=== PATIENT | male | born 1925 | race Caucasian/White ===

== ENCOUNTER 2016-05-03 20:54 | Observation (INO) | payer MEDICARE ==
--- NOTE | 2016-05-03 22:34 | ERNOTE ---
Medical Problem HPI - General Chief Complaint: General Assessment Time Seen by Provider: 05/03/16 22:23 Source: family Exam Limitations: dementia - Immun/Allergies/Home Medications Immunizations: IMMUNIZATION HX Immunizations Up to Date Yes History of Influenza Vaccine More Information Required Hx Pneumococcal Vaccination More Information Required Allergies/Adverse Reactions: Allergies No Known Allergies Allergy (Verified 05/03/16 22:17) Home Medications: HOME MEDICATIONS Pravastatin Sodium [Pravachol] 40 mg PO HS 05/31/12 [Last Taken Unknown] Terazosin HCl 10 mg PO BID 05/31/12 [Last Taken Unknown] Finasteride 05/03/16 [Last Taken Unknown] Furosemide [Lasix] 40 mg PO BID 05/03/16 [Last Taken Unknown] Lisinopril [Zestril] 40 mg PO DAILY 05/03/16 [Last Taken Unknown] QUEtiapine FUMARATE [Seroquel] 25 mg PO HS 05/03/16 [Last Taken Unknown] Verapamil HCl [Verelan] 240 mg PO DAILY 05/03/16 [Last Taken Unknown] amLODIPine BESYLATE 05/03/16 [Last Taken Unknown] - History of Present History Narrative: thinks he has "fluid around his heart" again Timing: getting worse Severity: moderate Review of Systems - Review of Systems Constitutional: Present: fatigue EYE: Present: no symptoms reported ENT: Present: no symptoms reported Respiratory: Present: shortness of breath Cardiology: Present: palpitations Gastrointestinal/Abdominal: Present: no symptoms reported Genitourinary: Present: no symptoms reported Musculoskeletal: Present: no symptoms reported Skin: Absent: rash Neurological: Present: anxiety, other - dementia, states he has been harder to handle lately Endocrine: Present: no symptoms reported Hematologic/Lymphatic: Present: no symptoms reported Psych: Present: no symptoms reported - Patient's Past Medical History Patient History - Medical: Diabetes Type 2, Dementia Patient History - Cancer: Skin Patient History - Surgical Procedures: No surgical history - Social History Living Situations: home Smoking Status: Never smoker Alcohol Use: none Drug Use: none Physical Exam - Physical Exam General Appearance: Present: wd/wn, alert, no apparent distress Ears, Nose, Throat: Present: normal ENT inspection, hearing decreased, normal pharynx Neck: Present: normal inspection, nontender Respiratory: Present: no respiratory distress, no accessory muscle use, crackles - right lower Cardiovascular/Chest: Present: bradycardia, irregularly irregular Gastrointestinal/Abdominal: Present: normal bowel sounds, nontender Back Exam: Present: normal inspection, normal range of motion, no CVA tenderness , no vertebral tenderness Extremity Exam: Present: normal inspection, non-tender, no edema, normal range of motion Neurological Exam: Present: alert, oriented - to self and situation Skin Exam: Present: normal color, warm/dry Lymphatic Exam: Present: no adenopathy ED Progress - Results and Orders Patient's Lab Results:: I have reviewed the patient's lab results. Results and Orders: Laboratory Tests 05/03/16 05/03/16 05/03/16 22:40 22:40 22:40 WBC 5.5 Hgb 10.6 L Hct 32.4 L Plt Count 91 L PT 12.3 H INR (Anticoag Therapy) 1.18 H PTT ([place]) 26.9 Sodium 141 Potassium 5.1 H Chloride 105 Carbon Dioxide 26.9 Anion Gap 14.2 H BUN 40 H Creatinine 1.57 H Est GFR (Non-Af Amer) 44 L BUN/Creatinine Ratio 25.5 H Random Glucose 155 H Calcium 8.6 Total Bilirubin 0.3 AST 15 ALT 18 L Alkaline Phosphatase 82 Troponin I 0.017 Total Protein 7.3 Albumin 3.6 - Vital Signs Patient's Vital Signs:: I have reviewed the patient's vital signs. Vital Signs: Vital Signs 05/03/16 05/03/16 22:10 22:17 Temperature 36.3 C L Pulse Rate 55 L 55 L Respiratory 18 14 Rate Blood Pressure 161/70 O2 Sat by Pulse 96 95 Oximetry - EKG EKG: atrial fibrillation EKG read: Interp. by me EKG Comments: slow ventricular response. no ST-T wave changes - X-Ray X-Ray #1 X-Ray: chest Interpretation: Interp. by me X-ray Comments: Possibly widened mediastinum. Scarring and possibly pleural effusion on the right - Progress/Reassessment Chief Complaint: General Assessment Progress:: Unchanged Progress Note-Subjective: 05/04/16 02:40 Called [facility] for possible transfer. [employer] states they are full and give permission to admit him here. 05/04/16 02:[address] Zuiñga, he agrees to admit patient here Departure - Departure Clinical Impression: Pleural effusion Atrial fibrillation Qualifiers: Atrial fibrillation type: unspecified Qualified Code(s): I48.91 - Unspecified atrial fibrillation Dementia Qualifiers: Dementia type: unspecified type Dementia behavioral disturbance: with behavioral disturbance Qualified Code(s): F03.91 - Unspecified dementia with behavioral disturbance Disposition: [facility] Condition: Fair
[2016-05-03 22:47] LABS: Hematocrit 32.4 % (42.0-52.0); Hemoglobin 10.6 gm/dL (13.5-18.0); Mean Corpuscular Hemoglobin 30.4 pg (27-31); Mean Corpuscular Hgb Conc 32.7 g/dl (32-36); Mean Platelet Volume 13.2 fl (6.0-9.5); Neutrophil # 3.8 K/mm3 (1.3-6.0); Red Blood Count 3.49 M/mm3 (4.7-6.0); White Blood Count 5.5 K/mm3 (4.0-10.5)
[2016-05-03 22:56] LABS: Prothrombin Time (Patient) 12.3 Seconds (9.4-11.4)
[2016-05-03 22:58] LABS: INR 1.18 INR (0.90-1.10); Partial Thrombolplastin Time 26.9 Seconds (24-32)
[2016-05-03 23:02] LABS: Platelet Count 91 K/mm3 (150-450)
[2016-05-03 23:03] LABS: Mean Cell Volume 92.8 fl (78-100)
[2016-05-03 23:04] LABS: Albumin * 3.6 gm/dl (3.4-5.0); Anion Gap 14.2 mmol/L (6.8-13.8); BUN/Creatinine Ratio 25.5 (9.0-21.6); Bilirubin, Total 0.3 mg/dL (0.0-1.1); Ca. Corrected For Albumin 8.6 mg/dL (8.4-10.2); Calcium * 8.6 mg/dL (7.9-10.9); Carbon Dioxide 26.9 mmol/L (24-32.6); Potassium 5.1 mmol/L (3.4-4.6); Total Protein 7.3 gm/dL (6.2-8.2); Troponin I 0.017 ng/ml (0.00-0.10)
[2016-05-04] MEDS: SODIUM CHLORIDE 45 SPRAY BTL NS PRN ×2 (11:42→21:36)
[2016-05-04] MEDS: SPIRONOLACTONE 25 MG TABLET PO SCH (17:13)
[2016-05-04] MEDS: ASPIRIN 325 MG TABLET.DR PO SCH (17:13)
[2016-05-04] MEDS: DOCUSATE SODIUM 100 MG CAPSULE PO SCH (17:13)
[2016-05-04] MEDS: FINASTERIDE 5 MG TABLET PO SCH (17:14)
[2016-05-04] MEDS: amLODIPine BESYLATE 5 MG TABLET PO SCH (17:14)
[2016-05-04] MEDS: LISINOPRIL 40 MG TABLET PO SCH (17:15)
--- NOTE | 2016-05-04 21:19 | HP ---
Addendum entered and electronically signed by Isaiah Zuñiga DO 06/08/16 07:40: Family History: Not contributory Original Note: Chief Complaint - Chief Complaint Date of Service: 05/04/16 Time of Service: 12:15 Chief Complaint: Short of breath, confusion, weakness History of Present Illness: Kumar is an 89 yo male with confusion. He reports that his has locked him here for 6 days and he is going to divorce her. He has no complaints. He does not answer questions appropriately. Report from the ER physician is that he was brought to the ER with weakness and shortness of breath. His brought him to the ER but left when he was admitted stating that she was not taking him home. ECG showed atrial fibrillation with rate controlled. was unaware of any prior history of atrial fibrillation. Chest xray showed right sided pleural effusion. No hypoxia on exam. History from patient and review of systoms is otherwise unabtainable. - Narrative Narrative: Past medical history is per ER, patient is unable to provide further and there is no family present. - Patient's Past Medical History Patient History - Medical: Diabetes Type 2, Dementia Patient History - Cardiac/Respiratory: History Unknown Patient History - Cancer: Skin Patient History - Surgical Procedures: No surgical history - Social History Living Situations: home Smoking Status: Never smoker Have you smoked in the past 12 months: No Alcohol Use: none Drug Use: none Review Of Systems (GEN) - Review of Systems Additional Comments: Unable to perform. Allergies/Adverse Reactions: Allergies Allergy/AdvReac Type Severity Reaction Status Date / Time No Known Allergies Allergy Verified 05/03/16 22:17 Home Medications: HOME MEDICATIONS Furosemide [Lasix] 80 mg PO BID 05/03/16 [Last Taken Unknown] Lisinopril [Zestril] 40 mg PO DAILY 05/03/16 [Last Taken Unknown] QUEtiapine FUMARATE [Seroquel] 25 mg PO HS 05/03/16 [Last Taken Unknown] Aspirin [Aspirin Enteric Coated] 325 mg PO DAILY 05/04/16 [Last Taken Unknown] Atorvastatin Calcium 20 mg PO HS 05/04/16 [Last Taken Unknown] Docusate Sodium [Colace] 200 mg PO DAILY 05/04/16 [Last Taken Unknown] Finasteride [Proscar] 5 mg PO DAILY 05/04/16 [Last Taken Unknown] Ibuprofen [Motrin] 200 mg PO Q6H PRN 05/04/16 [Last Taken Unknown] Spironolactone [Aldactone] 25 mg PO DAILY 05/04/16 [Last Taken Unknown] Terazosin HCl 10 mg PO BID 05/04/16 [Last Taken Unknown] amLODIPine BESYLATE [Norvasc] 5 mg PO DAILY 05/04/16 [Last Taken Unknown] guaiFENesin [Cough Control] 100 mg PO PRN PRN 05/04/16 [Last Taken Unknown] Exam - Exam Vital Signs: Vital Signs - Last Taken Temp 36.8 C 05/04/16 19:50 Pulse 84 05/04/16 19:50 Resp 20 05/04/16 19:50 BP 168/54 05/04/16 19:50 Pulse Ox 92 05/04/16 19:50 Constitutional: Present: Alert, No distress, Elderly ENT Exam: Present: hard of hearing Eye Exam: bilateral eye: normal inspection Respiratory: Present: decreased breath sounds - right lower lobe Cardiovascular/Chest: Present: no murmur, irregularly irregular Abdomen: Present: Normal bowel sounds, soft, nontender, nondistended, no rebound tenderness Extremity: Present: normal inspection Skin Exam: Present: normal color, warm/dry, no cyanosis Neurologic: Present: other - moves all extremities equally Thoughts: Present: delusions Diagnostic Studies: Laboratory Results WBC 5.5 K/mm3 (4.0-10.5) 05/03/16 22:40 RBC 3.49 M/mm3 (4.7-6.0) L 05/03/16 22:40 Hgb 10.6 gm/dL (13.5-18.0) L 05/03/16 22:40 Hct 32.4 % (42.0-52.0) L 05/03/16 22:40 MCV 92.8 fl (78-100) 05/03/16 22:40 MCH 30.4 pg (27-31) 05/03/16 22:40 MCHC 32.7 g/dl (32-36) 05/03/16 22:40 RDW 14.0 % (11.5-14.0) 05/03/16 22:40 Plt Count 91 K/mm3 (150-450) L 05/03/16 22:40 MPV 13.2 fl (6.0-9.5) H 05/03/16 22:40 Immature Gran % (Auto) 0.20 % (0.001-0.429) 05/03/16 22:40 Immature Gran # (Auto) 0.01 K/mm3 (0.000-0.0310) 05/03/16 22:40 Neutrophils % 69.0 % (42-75.0) 05/03/16 22:40 Lymphocytes % 18.6 % (20-51) L 05/03/16 22:40 Monocytes % 9.0 % (0.0-9) 05/03/16 22:40 Eosinophils % 2.7 % (0.0-3.0) 05/03/16 22:40 Basophils % 0.5 % (0.0-1.0) 05/03/16 22:40 Nucleated RBC % 0.0 k/mm3 (0-1) 05/03/16 22:40 Neutrophils # 3.8 K/mm3 (1.3-6.0) 05/03/16 22:40 Lymphocytes # 1.0 k/mm3 (1.5-3.5) L 05/03/16 22:40 Monocytes # 0.5 k/mm3 (0.0-1.0) 05/03/16 22:40 Eosinophils # 0.2 k/mm3 (0.0-0.7) 05/03/16 22:40 Absolute Basophils 0.0 k/mm3 (0.0-0.1) 05/03/16 22:40 PT 12.3 Seconds (9.4-11.4) H 05/03/16 22:40 INR (Anticoag Therapy) 1.18 INR (0.90-1.10) H 05/03/16 22:40 PTT ([place]) 26.9 Seconds (24-32) 05/03/16 22:40 Sodium 141 mmol/L (132-142) 05/03/16 22:40 Plasma Sodium 142 mmol/L (130-142) 05/03/16 22:40 Potassium 5.1 mmol/L (3.4-4.6) H 05/03/16 22:40 Chloride 105 mmol/L (97-106) 05/03/16 22:40 Carbon Dioxide 26.9 mmol/L (24-32.6) 05/03/16 22:40 Anion Gap 14.2 mmol/L (6.8-13.8) H 05/03/16 22:40 BUN 40 mg/dL (6-23) H 05/03/16 22:40 Creatinine 1.57 mg/dL (0.4-1.4) H 05/03/16 22:40 Est GFR (Non-Af Amer) 44 mL/min (60-130) L 05/03/16 22:40 BUN/Creatinine Ratio 25.5 (9.0-21.6) H 05/03/16 22:40 Random Glucose 155 mg/dL (70-110) H 05/03/16 22:40 Calcium 8.6 mg/dL (7.9-10.9) 05/03/16 22:40 Calcium Adj for Albumin 8.6 mg/dL (8.4-10.2) 05/03/16 22:40 Total Bilirubin 0.3 mg/dL (0.0-1.1) 05/03/16 22:40 AST 15 U/L (0-48) 05/03/16 22:40 ALT 18 U/L (19-67) L 05/03/16 22:40 Alkaline Phosphatase 82 U/L (50-170) 05/03/16 22:40 Troponin I 0.017 ng/ml (0.00-0.10) 05/03/16 22:40 Total Protein 7.3 gm/dL (6.2-8.2) 05/03/16 22:40 Albumin 3.6 gm/dl (3.4-5.0) 05/03/16 22:40 Assessment/Plan - Narrative Narrative: Kumar is an 89 yo male with new onset atrial fibrillation with controlled rate. His history is mostly unknown and family is not present. On exam he seems to be confused and oriented x 0. He is not in any acute distress and other than confusion is medically stable. Unclear etiology to atrial fibrillation and unsure of onset. Due to suspected chronic dementia patient is not likely a candidate for anticoagulation due to fall and bleeding risk. Aspirin will be sufficient for anticoagulation. Rate does not need further controlled as it is already stable. Patient does not meet criteria for inpatient status. Vitals are stable, no hypoxia. Patient does have pleural effusion but no apparent dyspnea or hypoxia. Patient is already on lasix. Could consider symptomatic thoracentesis but patient has no concerns about shortness of breath. Unsure on dementia if this is his baseline. Will discuss further with family. Expect 1 midnight stay for monitoring and observation and then will discharge to home unless family wishes to placement into nursing facility. - Assessment/Plan (1) Atrial fibrillation Problem: Acute Qualifiers: Atrial fibrillation type: unspecified Qualified Code(s): I48.91 - Unspecified atrial fibrillation (2) Dementia Problem: Chronic Qualifiers: Dementia type: unspecified type Dementia behavioral disturbance: without behavioral disturbance Qualified Code(s): F03.90 - Unspecified dementia without behavioral disturbance (3) Pleural effusion Problem: Acute
[2016-05-04] MEDS: FUROSEMIDE 80 MG TABLET PO SCH (21:29)
[2016-05-04] MEDS: ROSUVASTATIN CALCIUM 10 MG TABLET PO SCH (21:29)
[2016-05-04] MEDS: TERAZOSIN HCL 5 MG CAPSULE PO SCH (21:30)
[2016-05-04] MEDS: QUEtiapine FUMARATE 25 MG TABLET PO SCH (21:31)
[2016-05-04 23:09] LABS: Phosphorus 3.3 mg/dL (2.2-4.2); Potassium 4.9 mmol/L (3.4-4.6)
[2016-05-05] MEDS: SPIRONOLACTONE 25 MG TABLET PO SCH (08:28)
[2016-05-05] MEDS: ASPIRIN 325 MG TABLET.DR PO SCH (08:28)
[2016-05-05] MEDS: FUROSEMIDE 80 MG TABLET PO SCH ×2 (08:29→21:04)
[2016-05-05] MEDS: amLODIPine BESYLATE 5 MG TABLET PO SCH (08:29)
[2016-05-05] MEDS: FINASTERIDE 5 MG TABLET PO SCH (08:29)
[2016-05-05] MEDS: DOCUSATE SODIUM 100 MG CAPSULE PO SCH (08:29)
[2016-05-05] MEDS: TERAZOSIN HCL 5 MG CAPSULE PO SCH ×2 (08:29→21:04)
[2016-05-05] MEDS: LISINOPRIL 40 MG TABLET PO SCH (08:30)
[2016-05-05 09:40] LABS: Hemoglobin 11.2 gm/dL (13.5-18.0); Mean Cell Volume 91.4 fl (78-100); Mean Corpuscular Hemoglobin 30.1 pg (27-31); Mean Corpuscular Hgb Conc 32.9 g/dl (32-36); Mean Platelet Volume 11.8 fl (6.0-9.5); Neutrophil # 4.3 K/mm3 (1.3-6.0); Neutrophil % 76.7 % (42-75.0); Platelet Count 95 K/mm3 (150-450); Red Blood Count 3.72 M/mm3 (4.7-6.0); Red Cell Distribution Width 13.6 % (11.5-14.0); White Blood Count 5.5 K/mm3 (4.0-10.5)
[2016-05-05 09:58] LABS: Albumin * 3.5 gm/dl (3.4-5.0); Anion Gap 11.3 mmol/L (6.8-13.8); BUN/Creatinine Ratio 19.4 (9.0-21.6); Bilirubin, Total 0.8 mg/dL (0.0-1.1); Ca. Corrected For Albumin 9.4 mg/dL (8.4-10.2); Calcium * 9.3 mg/dL (7.9-10.9); Carbon Dioxide 30.1 mmol/L (24-32.6); Potassium 4.4 mmol/L (3.4-4.6); TSH * 1.315 uIU/mL (0.358-3.74); Total Protein 7.4 gm/dL (6.2-8.2)
--- NOTE | 2016-05-05 14:06 | PN ---
Subjective - Date and Time Seen Date: 05/05/16 Time: 09:40 Subjective Narrative: patient seen today in bed alert to self. pt stated his ran off and left him. he denies chest pain, palpitation, shortness of breath or lightheadedness. Objective - Review of Systems Generalized/Overall Review: Reports: No Symptoms Reported - unable to provide info due to mental status EENTM: Reports: No Symptoms Reported Respiratory: Reports: No Symptoms Reported Abdominal: Reports: No Symptoms Reported Genitourinary Symptoms: Reports: No Symptoms Reported Musculoskeletal Complaints: Reports: No Symptoms Reported Neurological: Reports: No Symptoms Reported Skin: Reports: No Symptoms Reported Endocrine: Reports: No Symptoms Reported - Vitals Vitals: Last Vital Signs Temp 37.1 C 05/05/16 09:39 Pulse 67 05/05/16 09:39 Resp 20 05/05/16 09:39 BP 130/53 05/05/16 09:39 Pulse Ox 93 05/05/16 09:39 - Abnormal Lab Findings Abnormal Lab Findings: Abnormal Lab Results 05/04/16 05/05/16 05/05/16 Range/Units 22:53 09:28 09:28 RBC 3.72 L (4.7-6.0) M/mm3 Hgb 11.2 L (13.5-18.0) gm/dL Hct 34.0 L (42.0-52.0) % Plt Count 95 L (150-450) K/mm3 MPV 11.8 H (6.0-9.5) fl Neutrophils % 76.7 H (42-75.0) % Lymphocytes % 11.9 L (20-51) % Lymphocytes # 0.7 L (1.5-3.5) k/mm3 Potassium 4.9 H (3.4-4.6) mmol/L BUN 28 H (6-23) mg/dL Creatinine 1.44 H (0.4-1.4) mg/dL Est GFR (Non-Af Amer) 49 L (60-130) mL/min Random Glucose 184 H (70-110) mg/dL ALT 16 L (19-67) U/L - Exam Constitutional: Present: No distress, Elderly ENT Exam: Present: moist mucous membranes Neck: Present: full range of motion Breasts: Present: Exam deferred Respiratory: Present: chest non-tender, lungs clear, normal breath sounds, no respiratory distress Cardiovascular/Chest: Present: normal peripheral pulses, no chest tenderness, no edema Abdomen: Present: Normal bowel sounds, soft, nontender, nondistended, no rebound tenderness /Rectal: Present: Exam deferred Extremity: Present: normal range of motion, normal inspection, no pedal edema, no calf tenderness Skin Exam: Present: normal color, warm/dry, no cyanosis Neurologic: Present: disoriented x 3 Appearance: Present: impaired recent memory Eye contact: Present: good eye contact Thoughts: Present: no apparent hallucination Assessment/Plan Plan Narrative: Atrial fibrillation 2D-echo pending TSH pending on adm Troponin 0.017 on adm EKG--A-fib On adm no distress new onset a-fib rate control on Metoprolol chronic dementia not a candidate for anticoag due to risk of fall/ bleeding---- > will continue with aspirin Dementia Chronic not at the bedside to confirm pt baseline Per previous notes left pt, with the attempt to get group home placement. she is unable to care for him at home. social service aware and making arrangements. Pleural effusion CXR: right side pleural effusion with associated compressive atelectasis, the right lower lobe. Home dose Lasix 80mg BID ? Thoracentesis if symptomatic VTE ppx: SCD/ ambulate Code status; Full - Problems/Diagnosis (1) Atrial fibrillation Problem: Acute Qualifiers: Atrial fibrillation type: unspecified Qualified Code(s): I48.91 - Unspecified atrial fibrillation (2) Pleural effusion Problem: Acute (3) Dementia Problem: Chronic Qualifiers: Dementia type: unspecified type Dementia behavioral disturbance: without behavioral disturbance Qualified Code(s): F03.90 - Unspecified dementia without behavioral disturbance
[2016-05-05] MEDS: HALOPERIDOL 1 MG TABLET PO PRN (16:51)
[2016-05-05] MEDS: HALOPERIDOL 5 MG TABLET PO PRN (19:13)
[2016-05-05] MEDS: SODIUM CHLORIDE 45 SPRAY BTL NS PRN (21:02)
[2016-05-05] MEDS: ROSUVASTATIN CALCIUM 10 MG TABLET PO SCH (21:03)
[2016-05-05] MEDS: QUEtiapine FUMARATE 25 MG TABLET PO SCH (21:04)
[2016-05-06] MEDS: HALOPERIDOL 1 MG TABLET PO PRN (01:23)
--- NOTE | 2016-05-06 08:45 | PN ---
Subjective - Date and Time Seen Date: 05/06/16 Time: 08:40 Subjective Narrative: Patient seen today at the nurses station alert to self and agitated while left alone. He denies discomfort and stated " I want my to come get him from this place". Objective - Review of Systems Generalized/Overall Review: Reports: No Symptoms Reported Respiratory: Reports: No Symptoms Reported Cardiac: Reports: No Symptoms Reported Abdominal: Reports: No Symptoms Reported Genitourinary Symptoms: Reports: No Symptoms Reported Musculoskeletal Complaints: Reports: No Symptoms Reported Neurological: Reports: No Symptoms Reported Skin: Reports: No Symptoms Reported - Vitals Vitals: Last Vital Signs Temp 36.6 C 05/06/16 06:17 Pulse 52 L 05/06/16 06:17 Resp 16 05/06/16 06:17 BP 145/56 05/06/16 06:17 Pulse Ox 96 05/06/16 06:17 - Abnormal Lab Findings Abnormal Lab Findings: Abnormal Lab Results 05/05/16 05/05/16 Range/Units 09:28 09:28 RBC 3.72 L (4.7-6.0) M/mm3 Hgb 11.2 L (13.5-18.0) gm/dL Hct 34.0 L (42.0-52.0) % Plt Count 95 L (150-450) K/mm3 MPV 11.8 H (6.0-9.5) fl Neutrophils % 76.7 H (42-75.0) % Lymphocytes % 11.9 L (20-51) % Lymphocytes # 0.7 L (1.5-3.5) k/mm3 BUN 28 H (6-23) mg/dL Creatinine 1.44 H (0.4-1.4) mg/dL Est GFR (Non-Af Amer) 49 L (60-130) mL/min Random Glucose 184 H (70-110) mg/dL ALT 16 L (19-67) U/L - EKG/Xray Findings EKG: atrial fibrillation - Exam Constitutional: Present: Elderly ENT Exam: Present: hard of hearing, moist mucous membranes Neck: Present: full range of motion Breasts: Present: Exam deferred Respiratory: Present: chest non-tender, no respiratory distress, no accessory muscle use Cardiovascular/Chest: Present: normal peripheral pulses, no chest tenderness, irregularly irregular Abdomen: Present: Normal bowel sounds, soft, nontender, nondistended, no rebound tenderness /Rectal: Present: Exam deferred Extremity: Present: normal range of motion, non-tender, normal inspection, no pedal edema, no calf tenderness Skin Exam: Present: normal color, cool/dry Neurologic: Present: disoriented x 3 Appearance: Present: impaired insight Assessment/Plan Plan Narrative: Atrial fibrillation 2D-echo still pending TSH Noted On adm Troponin 0.017 on adm EKG--A-fib, tele pt remain in A-fib On adm no distress new onset a-fib rate control on Metoprolol chronic dementia not a candidate for anticoag due to risk of fall/ bleeding---- > will continue with aspirin Pleural effusion CXR: right side pleural effusion with associated compressive atelectasis, the right lower lobe. Asymptomatic Dementia Chronic not at the bedside to confirm pt baseline Per previous notes left pt, with the attempt to get [facility] placement on dementia unit. she is unable to care for him at home. social service aware and attempting to secure placement[facility] , he will need [facility] on a [facility] unit. [facility] have waiting list for there unit. MARQUIS On adm Bun/cre 40/1.57--->28/1.44 gradually trending down GFR 49 Monitor BMP in am VTE ppx: SCD/ ambulate Code status; Full - Problems/Diagnosis (1) Atrial fibrillation Problem: Acute Qualifiers: Atrial fibrillation type: unspecified Qualified Code(s): I48.91 - Unspecified atrial fibrillation (2) Pleural effusion Problem: Acute (3) Dementia Problem: Chronic Qualifiers: Dementia type: unspecified type Dementia behavioral disturbance: without behavioral disturbance Qualified Code(s): F03.90 - Unspecified dementia without behavioral disturbance
[2016-05-06] MEDS: SPIRONOLACTONE 25 MG TABLET PO SCH (09:42)
[2016-05-06] MEDS: FUROSEMIDE 80 MG TABLET PO SCH ×2 (09:42→20:50)
[2016-05-06] MEDS: LISINOPRIL 40 MG TABLET PO SCH (09:42)
[2016-05-06] MEDS: DOCUSATE SODIUM 100 MG CAPSULE PO SCH (09:42)
[2016-05-06] MEDS: amLODIPine BESYLATE 5 MG TABLET PO SCH (09:43)
[2016-05-06] MEDS: TERAZOSIN HCL 5 MG CAPSULE PO SCH ×2 (09:43→20:50)
[2016-05-06] MEDS: FINASTERIDE 5 MG TABLET PO SCH (09:43)
[2016-05-06] MEDS: ASPIRIN 325 MG TABLET.DR PO SCH (09:43)
[2016-05-06 10:26] LABS: BUN/Creatinine Ratio 20.9 (9.0-21.6); Calcium * 9.5 mg/dL (7.9-10.9); Carbon Dioxide 30.1 mmol/L (24-32.6); Potassium 4.1 mmol/L (3.4-4.6)
[2016-05-06 13:51] LABS: Urine Bilirubin Negative (NEGATIVE); Urine Blood 25 /ul (NEGATIVE); Urine Ketone Negative (NEGATIVE); Urine Nitrite Negative (NEGATIVE); Urine Protein Negative (NEGATIVE); Urine Specific Gravity 1.015 SP.GR. (1.005-1.030); Urine Urobilinogen Normal (NORMAL); Urine pH 5.5 pH (5.0-7.0)
[2016-05-06 14:04] LABS: Urine Appearance Clear; Urine Color Yellow
[2016-05-06 14:05] LABS: Urine Bacteria TRACE; Urine RBC 0-5 /hpf (0-5)
[2016-05-06] MEDS: HALOPERIDOL 5 MG TABLET PO PRN (20:50)
[2016-05-06] MEDS: QUEtiapine FUMARATE 25 MG TABLET PO SCH (20:51)
[2016-05-06] MEDS: ROSUVASTATIN CALCIUM 10 MG TABLET PO SCH (20:51)
[2016-05-06] MEDS: SODIUM CHLORIDE 45 SPRAY BTL NS PRN (20:51)
[2016-05-07] MEDS: SODIUM CHLORIDE 45 SPRAY BTL NS PRN ×3 (07:34→20:35)
[2016-05-07] MEDS: ASPIRIN 325 MG TABLET.DR PO SCH (08:46)
[2016-05-07] MEDS: amLODIPine BESYLATE 5 MG TABLET PO SCH (08:47)
[2016-05-07] MEDS: LISINOPRIL 40 MG TABLET PO SCH (08:47)
[2016-05-07] MEDS: TERAZOSIN HCL 5 MG CAPSULE PO SCH ×2 (08:47→20:35)
[2016-05-07] MEDS: SPIRONOLACTONE 25 MG TABLET PO SCH (08:48)
[2016-05-07] MEDS: FINASTERIDE 5 MG TABLET PO SCH (08:48)
[2016-05-07] MEDS: FUROSEMIDE 80 MG TABLET PO SCH (08:48)
[2016-05-07] MEDS: DOCUSATE SODIUM 100 MG CAPSULE PO SCH (08:48)
[2016-05-07] MEDS ORDERED: FUROSEMIDE 80 MG TABLET PO SCH (19:00)
[2016-05-07] MEDS: ROSUVASTATIN CALCIUM 10 MG TABLET PO SCH (20:34)
[2016-05-07] MEDS: QUEtiapine FUMARATE 25 MG TABLET PO SCH (20:35)
--- NOTE | 2016-05-07 23:48 | PN ---
Subjective - Date and Time Seen Date: 05/07/16 Time: 13:25 Subjective Narrative: Kumar reports doing well. No concerns. Denies shortness of breath, fever, chills , nausea, or vomiting. Objective - Vitals Vitals: Last Vital Signs Temp 36.7 C 05/07/16 19:00 Pulse 83 05/07/16 19:46 Resp 16 05/07/16 19:00 BP 122/88 05/07/16 19:46 Pulse Ox 97 05/07/16 19:00 - Exam Constitutional: Present: Alert, Oriented x3, Cooperative ENT Exam: Present: hard of hearing Cardiovascular/Chest: Present: no murmur, irregularly irregular Abdomen: Present: Normal bowel sounds, soft, nontender, nondistended Skin Exam: Present: normal color, warm/dry, no cyanosis Assessment/Plan - Problems/Diagnosis (1) Dementia Problem: Chronic Qualifiers: Dementia type: unspecified type Dementia behavioral disturbance: without behavioral disturbance Qualified Code(s): F03.90 - Unspecified dementia without behavioral disturbance Narrative: Progressive dementia. reports being unable to care for him at home. Looking into nursing facility. (2) Atrial fibrillation Problem: Acute Qualifiers: Atrial fibrillation type: unspecified Qualified Code(s): I48.91 - Unspecified atrial fibrillation Narrative: Due to advanced age and dementia patient would be at high risk for fall and bleed on anticoagulants. Recommend aspirin. Rate controlled. (3) Pleural effusion Problem: Chronic Narrative: Asymptomatic, no hypoxia. No treatment needed.
[2016-05-08] MEDS: HALOPERIDOL 5 MG TABLET PO PRN ×2 (03:24→14:41)
--- NOTE | 2016-05-08 06:18 | PN ---
Addendum entered and electronically signed by Isaiah Zuñiga DO 05/08/16 10:54: Patient was seen and evaluated with Hospitalist, Annie Fournier. Agree with narrative and plan. Progressive dementia has made it impossible for family to care for patient at home any longer. Looking into placement. Original Note: Subjective - Date and Time Seen Date: 05/08/16 Time: 06:12 Subjective Narrative: Pt without any issues overnight. Was very happy that he was able to get his guitar, per nursing this seemed to ease his anxiety. Lasix scheduled was changed to 6am and 6pm per request of keeping him up late at night. Still pending placement. Objective - Review of Systems Generalized/Overall Review: Reports: No Symptoms Reported EENTM: Reports: No Symptoms Reported Respiratory: Reports: No Symptoms Reported Cardiac: Reports: No Symptoms Reported Abdominal: Reports: No Symptoms Reported Genitourinary Symptoms: Reports: Frequency Musculoskeletal Complaints: Reports: No Symptoms Reported Neurological: Reports: No Symptoms Reported Skin: Reports: No Symptoms Reported Endocrine: Reports: No Symptoms Reported - Vitals Vitals: Last Vital Signs Temp 36.6 C 05/08/16 03:00 Pulse 75 05/08/16 03:00 Resp 20 05/08/16 03:00 BP 151/60 05/08/16 03:00 Pulse Ox 94 05/08/16 03:00 - Exam Constitutional: Present: Alert, Cooperative, No distress, Elderly ENT Exam: Present: hard of hearing Respiratory: Present: chest non-tender, normal breath sounds, no respiratory distress, no accessory muscle use, decreased breath sounds Cardiovascular/Chest: Present: normal peripheral pulses, no chest tenderness, no edema, no murmur, irregularly irregular Abdomen: Present: Normal bowel sounds, soft, nontender, nondistended Extremity: Present: normal range of motion, non-tender, normal inspection, no pedal edema, no calf tenderness, normal capillary refill Skin Exam: Present: normal color, warm/dry, no cyanosis Neurologic: Present: no motor/sensory deficits, alert, normal mood/affect Appearance: Present: neat, impaired insight Eye contact: Present: cooperative, good eye contact, normal speech Thoughts: Present: normal thought pattern, no apparent hallucination Assessment/Plan - Problems/Diagnosis (1) Atrial fibrillation Problem: Acute Qualifiers: Atrial fibrillation type: unspecified Qualified Code(s): I48.91 - Unspecified atrial fibrillation Narrative: Stable, rate controlled in the 60-80's. (2) Pleural effusion Problem: Acute Narrative: Stable, no respiratory issues. Remained 93-98% on RA. (3) Dementia Problem: Chronic Qualifiers: Dementia type: unspecified type Dementia behavioral disturbance: without behavioral disturbance Qualified Code(s): F03.90 - Unspecified dementia without behavioral disturbance Narrative: [facility]. Is more cooperative at night with the addition of PRN Haldol. Pending placement, likely dc later this week.
[2016-05-08] MEDS: SODIUM CHLORIDE 45 SPRAY BTL NS PRN ×4 (06:38→20:25)
[2016-05-08] MEDS: TERAZOSIN HCL 5 MG CAPSULE PO SCH ×2 (08:58→20:24)
[2016-05-08] MEDS: DOCUSATE SODIUM 100 MG CAPSULE PO SCH (08:58)
[2016-05-08] MEDS: ASPIRIN 325 MG TABLET.DR PO SCH (08:58)
[2016-05-08] MEDS: FINASTERIDE 5 MG TABLET PO SCH (08:58)
[2016-05-08] MEDS: LISINOPRIL 40 MG TABLET PO SCH (08:59)
[2016-05-08] MEDS: amLODIPine BESYLATE 5 MG TABLET PO SCH (08:59)
[2016-05-08] MEDS: SPIRONOLACTONE 25 MG TABLET PO SCH (08:59)
[2016-05-08] MEDS ORDERED: FUROSEMIDE 80 MG TABLET PO ONE (09:00)
[2016-05-08] MEDS: FUROSEMIDE 80 MG TABLET PO SCH (17:04)
[2016-05-08] MEDS: QUEtiapine FUMARATE 25 MG TABLET PO SCH (20:24)
[2016-05-08] MEDS: ROSUVASTATIN CALCIUM 10 MG TABLET PO SCH (20:25)
[2016-05-08] MEDS: NYSTATIN 15 APPL BTL TP SCH (23:42)
[2016-05-09] MEDS: HALOPERIDOL 5 MG TABLET PO PRN (00:54)
--- NOTE | 2016-05-09 06:35 | PN ---
Subjective - Date and Time Seen Date: 05/09/16 Time: 06:29 Subjective Narrative: Pt slept well last night. Continues to be cooperative with PRN Haldol. No acute issues or complaints over night. Pending placement at this time. Objective - Review of Systems Generalized/Overall Review: Reports: No Symptoms Reported EENTM: Reports: No Symptoms Reported Respiratory: Reports: No Symptoms Reported Cardiac: Reports: No Symptoms Reported Abdominal: Reports: No Symptoms Reported Genitourinary Symptoms: Reports: No Symptoms Reported Musculoskeletal Complaints: Reports: No Symptoms Reported Neurological: Reports: No Symptoms Reported Skin: Reports: No Symptoms Reported Endocrine: Reports: No Symptoms Reported - Vitals Vitals: Last Vital Signs Temp 36.4 C L 05/09/16 03:00 Pulse 61 05/09/16 03:00 Resp 18 05/09/16 03:00 BP 138/78 05/09/16 03:00 Pulse Ox 97 05/09/16 03:00 - Exam Constitutional: Present: Alert, Cooperative, No distress, Elderly ENT Exam: Present: normal ENT inspection, hard of hearing, dry mucous membranes Respiratory: Present: normal breath sounds, no respiratory distress, no accessory muscle use, decreased breath sounds Cardiovascular/Chest: Present: normal peripheral pulses, no chest tenderness, irregularly irregular Abdomen: Present: Normal bowel sounds, soft, nontender, nondistended Extremity: Present: normal range of motion, non-tender, normal inspection, no calf tenderness, normal capillary refill Skin Exam: Present: normal color, warm/dry, no cyanosis Neurologic: Present: alert, normal mood/affect Appearance: Present: denies illness, impaired insight Eye contact: Present: cooperative, normal speech Thoughts: Present: no apparent hallucination Assessment/Plan - Problems/Diagnosis (1) Atrial fibrillation Problem: Acute Qualifiers: Atrial fibrillation type: unspecified Qualified Code(s): I48.91 - Unspecified atrial fibrillation Narrative: Stable (2) Pleural effusion Problem: Acute Narrative: Stable, no respiratory issues. Continue 80mg PO lasix, will add CMP this am. (3) Dementia Problem: Chronic Qualifiers: Dementia type: unspecified type Dementia behavioral disturbance: without behavioral disturbance Qualified Code(s): F03.90 - Unspecified dementia without behavioral disturbance Narrative: Pending placement. Per HANNAH Caal will follow up today.
[2016-05-09] MEDS: FUROSEMIDE 80 MG TABLET PO SCH (06:38)
[2016-05-09 06:59] LABS: Albumin * 3.6 gm/dl (3.4-5.0); Anion Gap 13.6 mmol/L (6.8-13.8); Bilirubin, Total 0.6 mg/dL (0.0-1.1); Ca. Corrected For Albumin 9.3 mg/dL (8.4-10.2); Calcium * 9.3 mg/dL (7.9-10.9); Carbon Dioxide 30.6 mmol/L (24-32.6); Potassium 4.2 mmol/L (3.4-4.6); Total Protein 7.5 gm/dL (6.2-8.2)
[2016-05-09 07:55] VITALS: BP 161/70
[2016-05-09] MEDS: NYSTATIN 15 APPL BTL TP SCH (08:33)
[2016-05-09] MEDS: SPIRONOLACTONE 25 MG TABLET PO SCH (08:33)
[2016-05-09] MEDS: DOCUSATE SODIUM 100 MG CAPSULE PO SCH (08:33)
[2016-05-09] MEDS: ASPIRIN 325 MG TABLET.DR PO SCH (08:33)
[2016-05-09] MEDS: TERAZOSIN HCL 5 MG CAPSULE PO SCH (08:33)
[2016-05-09] MEDS: SODIUM CHLORIDE 45 SPRAY BTL NS PRN (08:34)
[2016-05-09] MEDS: LISINOPRIL 40 MG TABLET PO SCH (08:34)
[2016-05-09] MEDS: amLODIPine BESYLATE 5 MG TABLET PO SCH (08:34)
[2016-05-09] MEDS: FINASTERIDE 5 MG TABLET PO SCH (08:34)
--- NOTE | 2016-05-09 10:45 | DS ---
(1) Dementia Diagnosis(s): Kumar is an 89 yo male that was admitted due to progressive dementia to the point his was unable to care for him at home. He was very restless at times with some hallucinations. His anxiety was found to be significantly reduced when his guitar was brought into the hospital. He was also placed on haldol 5mg HS and 1mg q6hr prn anxiety/restlessness which seemed to help. He was very pleasant and had no behavioral concerns. Initially his felt she was unable to care for him any longer and we looked into nursing facility placement. Over a few days time the decided that she could care for him at home, potentially with the addition of haldol. Will give rx for haldol 5mg HS and 1mg during the day as needed q6hr. He will follow up with his physician at the [place]. Problem: Chronic Qualifiers: Dementia type: unspecified type Dementia behavioral disturbance: without behavioral disturbance Qualified Code(s): F03.90 - Unspecified dementia without behavioral disturbance (2) Atrial fibrillation Diagnosis(s): In the ER he was found to be in atrial fibrillation with controlled rate. Unknown duration. He was asymptomatic from his atrial fibrillation. Rate was controlled throughout hospital course and he is already on a beta niles. He is also already on full dose aspirin and I believe anything stronger would put him at bleeding risk. No changes made in regards to his atrial fibrillation, unknown duration and etiology. Problem: Acute Qualifiers: Atrial fibrillation type: unspecified Qualified Code(s): I48.91 - Unspecified atrial fibrillation (3) Pleural effusion Diagnosis(s): Patient with pleural effusion of unknown duration and etiology. He is asymptomatic and has no hypoxia. Thoracentesis was not recommend because of these reasons. Will continue on lasix for medical management. Unknown etiology, likely related to atrial fibrillation. Recommend low salt diet. May get thoracentesis if he becomes symptomatic but it is likely chronic and because of his age and chronic dementia I would not put him through further workout when it does not bother him or slow him down. Problem: Chronic Procedures Performed: none Discharge Disposition: Home self care Disposition: Home self-care Condition: Good Discharge Activity: Activity as tolerated Discharge Diet: Low salt Problem Oriented Discharge Instructions to Patient/Family: Atrial Fibrillation , [id number], Pleural Effusion, Dementia, [id number] Prescriptions (Any new or edited meds): Haloperidol [Haldol] 1 mg PO Q6H PRN #60 tablet PRN Reason: Anxiety Haloperidol [Haldol] 5 mg PO HS PRN #30 tablet PRN Reason: Anxiety Complete Home Medications List: Complete Home Medication List: Furosemide [Lasix] 80 mg PO BID 05/03/16 Lisinopril [Zestril] 40 mg PO DAILY 05/03/16 QUEtiapine FUMARATE [Seroquel] 25 mg PO HS 05/03/16 Aspirin [Aspirin Enteric Coated] 325 mg PO DAILY 05/04/16 Atorvastatin Calcium 20 mg PO HS 05/04/16 Docusate Sodium [Colace] 200 mg PO DAILY 05/04/16 Finasteride [Proscar] 5 mg PO DAILY 05/04/16 Ibuprofen [Motrin] 200 mg PO Q6H PRN 05/04/16 Spironolactone [Aldactone] 25 mg PO DAILY 05/04/16 Terazosin HCl 10 mg PO BID 05/04/16 amLODIPine BESYLATE [Norvasc] 5 mg PO DAILY 05/04/16 guaiFENesin [Cough Control] 100 mg PO PRN PRN 05/04/16 Haloperidol [Haldol] 1 mg PO Q6H PRN #60 tablet 05/09/16 Haloperidol [Haldol] 5 mg PO HS PRN #30 tablet 05/09/16
--- NOTE | 2016-05-09 12:25 | ECHO ---
This report is available in the EMR
== END 2016-05-09 13:09 | disposition home or self-care (01) ==
LOC: ER 20:54 → MS 05-04 02:54 → INTOOBSV 05-04 02:54
PROVIDERS: ADMIT Family Medicine; ATTEND Family Medicine
DX: I48.91 Unspecified atrial fibrillation (principal); F03.90 Unspecified dementia, unspecified severity, without behavioral disturbance, psychotic disturbance, mood disturbance, and anxiety; J90 Pleural effusion, not elsewhere classified; Z79.899 Other long term (current) drug therapy; Z79.82 Long term (current) use of aspirin; Z85.828 Personal history of other malignant neoplasm of skin
CPT/HCPCS: 36415; 71020; 71250; 80048; 80053; 81001; 83735; 84100; 84132; 84443; 84484; 85025; 85610; 85730; 87086; 93005; 93306; 97161; 99283; G0378; G8978; G8979; G8980